=== PATIENT | female | born 1965 | race Caucasian/White ===

== ENCOUNTER 2021-04-22 17:00 | Emergency (ER) | payer OTHER, MEDICAID, SELFPAY ==
[~2021-04-22] VITALS: Ht 152.4 cm; Wt 165.1 kg
--- NOTE | 2021-04-22 17:00 | NUR ---
Pt triaged and placed in hallway.
--- NOTE | 2021-04-22 17:10 | NUR ---
Pt transfered from from post acute care for medical clearance and will be sent to [facility] for psychiatric treatment. V/S stable, no acute distress noted.
[2021-04-22 17:40] VITALS: BP_SYST 140
--- NOTE | 2021-04-22 17:40 | NUR ---
ER Dr. Morgan at bedside examining patient.
[2021-04-22 18:47] LABS: BILIRUBIN,URINE NEGATIVE (NEGATIVE); CLARITY/URINE CLEAR (CLEAR); COLOR,URINE YELLOW (YELLOW); GLUCOSE,URINE NEGATIVE (NEGATIVE); KETONES,URINE NEGATIVE (NEGATIVE); LEUKOCYTE ESTERASE ,URINE NEGATIVE (NEGATIVE); NITRITE, URINE NEGATIVE (NEGATIVE); PROTEIN URINE 2+ (NEGATIVE); UROBILINOGEN,URINE 0.2 (0.2-1.0)
[2021-04-22 18:51] LABS: BLOOD, URINE TRACE (NEGATIVE)
[2021-04-22 18:56] LABS: BASOPHILS # (AUTO) 0.1 K/uL (0.0-0.2); BASOPHILS % (AUTO) 1.1 % (0.0-2.0); EOSINOPHILS # (AUTO) 0.3 K/uL (0.0-0.4); EOSINOPHILS % (AUTO) 3.9 % (0.0-4.0); HEMATOCRIT 39.2 % (36-48); HEMOGLOBIN 13.7 g/dL (12.0-16.0); LYMPHOCYTES # (AUTO) 2.1 K/uL (1.0-5.5); LYMPHOCYTES % (AUTO) 26.4 % (20.5-51.5); MEAN CORPUSCULAR HEMOGLOBIN 31 pg (27-31); MEAN CORPUSCULAR HGB CONC 35 % (32-36); MEAN CORPUSCULAR VOLUME 88 fL (79.0-98.0); MONOCYTES # (AUTO) 0.5 K/uL (0.0-1.0); MONOCYTES % (AUTO) 6.2 % (1.7-9.3); NEUTROPHILS # (AUTO) 4.9 K/uL (1.8-7.7); NEUTROPHILS % (AUTO) 62.4 % (40.0-70.0); PLATELET COUNT (AUTO) 225 K/uL (130-430); RED BLOOD CELL COUNT(AUTO) 4.47 MIL/uL (4.2-6.2); RED CELL DISTRIBUTION WIDTH 12.6 % (9.0-15.0); WHITE BLOOD COUNT (AUTO) 7.8 K/uL (4.8-10.8)
--- NOTE | 2021-04-22 19:10 | NUR ---
Care of patient endorsed to AIDEN Busch. Pt currently resting in bed, no acute distress noted.
[2021-04-22 19:18] LABS: BARBITURATE, URINE NEGATIVE (NEG <=200); BENZODIAZEPINE, URINE NEGATIVE (NEG <=150); CANNABINOID, URINE NEGATIVE (NEG <=50); COCAINE, URINE NEGATIVE (NEG <=150); METHAMPHETAMINES SCREEN,URINE NEGATIVE (NEG <=500); OPIATE, URINE POSITIVE (NEG <=100); PHENCYCLIDINE SCREEN,URINE NEGATIVE (NEG <=25); UR TRICYCLIC ANTIDEPRESSANTS NEGATIVE (NEG <=300); URINE AMPHETAMINE NEGATIVE (NEG <=500); URINE METHADONE NEGATIVE (NEG <=200); URINE OXYCODONE SCREEN POSITIVE (NEG <=100); URINE PROPOXYPHENE SCREEN NEGATIVE (NEG <=300)
[2021-04-22 19:22] LABS: ANION GAP 6 (5-15); CALCIUM 9.1 mg/dL (8.4-11.0); CHLORIDE 95 mmol/L (98-107); CREATININE 0.71 mg/dL (0.55-1.30); GLUCOSE 111 mg/dL (70-99); POTASSIUM 3.8 mmol/L (3.5-5.1); SODIUM SERUM 131 mmol/L (136-145); UREA NITROGEN, BLOOD 11 mg/dL (8-21)
[2021-04-22 19:28] LABS: ALANINE AMINOTRANSFERASE 38 U/L (12-78); ALBUMIN 3.7 g/dL (3.4-4.8); ASPARTATE AMINOTRANSFERASE 22 U/L (10-37); TOTAL BILIRUBIN 0.4 mg/dL (0.0-1.0)
[2021-04-22 19:30] LABS: BACTERIA,URINE FEW /HPF (None Seen); MUCUS,URINE None Seen /LPF (None Seen); RBC,URINE 0-3 /HPF (0-3); WBC,URINE 0-3 /HPF (0-3)
[2021-04-22 19:38] LABS: GFR AFRICAN AMERICAN 111 mL/min (>90)
[2021-04-22 19:39] LABS: ACETAMINOPHEN < 1 ug/mL (1-30); ALCOHOL, BLOOD < 3 mg/dL (<10)
[2021-04-22 19:58] LABS: CHOLESTEROL 161 mg/dL (<200); HDL CHOLESTEROL 48 mg/dL (>55); LDL CHOLESTEROL 102 mg/dL (<100); TRIGLYCERIDES 104 mg/dL (30-150)
[2021-04-22 20:30] VITALS: BP_SYST 140
--- NOTE | 2021-04-22 20:30 | NUR ---
CALLED BACK [facility] AND SPOKE WITH ROSELINE FLY FISHING GUIDE NURSE.
--- NOTE | 2021-04-22 20:30 | NUR ---
Patient given written and verbal discharge instructions and verbalizes understanding. DR. LIUDMILA RALPH MD discussed with patient the results and treatment provided. Patient in stable condition. ID arm band removed. Patient educated on pain management and to follow up with PMD. Pain Scale 0/10. Opportunity for questions provided and answered.
== END 2021-04-22 20:30 | disposition home or self-care (01) ==
LOC: SED 17:00
DX: G47.8 Other sleep disorders (principal); F39 Unspecified mood [affective] disorder; F31.9 Bipolar disorder, unspecified; Z20.822 Contact with and (suspected) exposure to COVID-19; Z79.899 Other long term (current) drug therapy
CPT/HCPCS: 36415; 80053; 80061; 80307; 81000; 83036; 85025; 87081; 87426; 99283; G0480; G0481; G0482